=== PATIENT | female | born 1965 | race Caucasian/White ===

== ENCOUNTER 2017-11-15 12:09 | Emergency (ER) | payer MEDICAID ==
[~2017-11-15] VITALS: Ht 165.1 cm; Wt 61.2 kg
[2017-11-15 12:15] VITALS: Ht 165.1 cm; Wt 61.2 kg
[2017-11-15 15:24] LABS: UA SPECIFIC GRAVITY 1.015 (1.005-1.035); microscopic required? YES; urine erythrocyte TRACE (NEGATIVE)
[2017-11-15 15:28] LABS: BASOPHIL % 0.6 % (0-2); PLATELET COUNT 220 x10^3mcL (130-400); RED CELL DISTRIBUTION WIDTH 13.4 % (11.5-14.5)
[2017-11-15 15:30] LABS: CALCIUM 9.1 mg/dL (8.5-10.1); CARBON DIOXIDE 26.9 mmol/L (21-32); CHLORIDE SERUM 98 mmol/L (98-107); CREATININE SERUM 0.7 mg/dL (0.6-1.0); GFR1 > 60 mL/min; GLUCOSE SERUM 352 mg/dL (74-106); POTASSIUM SERUM 3.7 mmol/L (3.5-5.1); SODIUM SERUM 136 mmol/L (136-145)
[2017-11-15 15:42] LABS: ALBUMIN 3.8 g/dL (3.4-5.0); ALKALINE PHOSPHATASE 116 U/L (46-116); ALT/SGPT 19 U/L (14-59); AST/SGOT 9 U/L (15-37); BILIRUBIN TOTAL 0.2 mg/dL (0.20-1.00); LIPASE 142 IU/L (73-393); T4(THYROXINE) 7.7 ug/dL (4.7-13.3); TOTAL PROTEIN, SERUM 7.8 g/dL (6.4-8.2)
[2017-11-15 15:43] LABS: AMYLASE 22 U/L (25-115); CHOLESTEROL 221 mg/dL (<200)
[2017-11-15 15:44] LABS: HDL CHOLESTEROL 66 mg/dL (40-60)
[2017-11-15 18:02] VITALS: BP 112/69
== END 2017-11-15 18:02 | disposition home or self-care (01) ==
LOC: ED 12:09
PROVIDERS: Emergency Medicine
DX: M54.16 Radiculopathy, lumbar region (principal); E11.9 Type 2 diabetes mellitus without complications
CPT/HCPCS: 82962; 83880; J1100; J1815; J1885; J7030

== ENCOUNTER 2018-03-01 11:46 | Emergency (ER) | payer MEDICAID ==
[~2018-03-01] VITALS: Ht 157.5 cm; Wt 63.5 kg
[2018-03-01 11:55] VITALS: Ht 157.5 cm; Wt 63.5 kg
[2018-03-01 13:08] VITALS: BP 139/87
== END 2018-03-01 13:08 | disposition home or self-care (01) ==
LOC: ED 11:46
DX: B37.3 Candidiasis of vulva and vagina (principal); E11.9 Type 2 diabetes mellitus without complications

== ENCOUNTER 2019-01-22 09:28 | Emergency (ER) | payer MEDICAID ==
[~2019-01-22] VITALS: Ht 160 cm; Wt 58.1 kg
[2019-01-22 13:27] VITALS: BP 140/80
== END 2019-01-22 13:27 | disposition home or self-care (01) ==
LOC: ED 09:28
DX: M54.42 Lumbago with sciatica, left side (principal); K64.4 Residual hemorrhoidal skin tags; E11.9 Type 2 diabetes mellitus without complications; Z88.5 Allergy status to narcotic agent

== ENCOUNTER 2019-03-21 05:54 | Emergency (ER) | payer SELFPAY ==
[~2019-03-21] VITALS: Ht 157.5 cm; Wt 63.5 kg
[2019-03-21 06:06] VITALS: Ht 157.5 cm; Wt 63.5 kg
[2019-03-21 08:17] VITALS: BP 143/76
== END 2019-03-21 08:17 | disposition home or self-care (01) ==
LOC: ED 05:54
DX: M54.42 Lumbago with sciatica, left side (principal); G89.29 Other chronic pain; K59.00 Constipation, unspecified
CPT/HCPCS: J1885; J3010

== ENCOUNTER 2019-03-25 19:56 | Emergency (ER) | payer MEDICAID ==
[~2019-03-25] VITALS: Ht 162.6 cm; Wt 70.3 kg
[2019-03-25 19:59] VITALS: Ht 162.6 cm; Wt 70.3 kg
[2019-03-25 21:58] VITALS: BP 146/88
== END 2019-03-25 21:58 | disposition home or self-care (01) ==
LOC: ED 19:56
DX: M54.42 Lumbago with sciatica, left side (principal); E11.9 Type 2 diabetes mellitus without complications; Z88.5 Allergy status to narcotic agent
CPT/HCPCS: J1885; J3010